=== PATIENT | male | born 1985 | race Caucasian/White ===

== ENCOUNTER 2018-07-20 11:24 | Observation (INO) | payer OTHER ==
--- NOTE | 2018-07-20 12:46 | PDOC ---
History of Present Illness - General Chief Complaint: Chest Pain Stated Complaint: LT SIDE LUNG PAIN Time Seen by Provider: 07/20/18 11:56 History Source: Patient Exam Limitations: No Limitations Past History - Past Medical History Allergies/Adverse Reactions: Allergies Allergy/AdvReac Type Severity Reaction Status Date / Time No Known Allergies Allergy Verified 07/20/18 13:28 COPD: No - Immunization History Immunization Up to Date: Yes - Suicide/Smoking/Psychosocial Hx Smoking History: Never smoked Hx Alcohol Use: No Drug/Substance Use Hx: No *Physical Exam - Vital Signs Last Vital Signs Temp Pulse Resp BP Pulse Ox 99.0 F 119 H 16 141/85 97 07/20/18 11:40 07/20/18 11:40 07/20/18 11:40 07/20/18 11:40 07/20/18 11:40 - Physical Exam General Appearance: No: Apparent Distress Respiratory/Chest: positive: Decreased Breath Sounds (along R lower lung base). negative: Respiratory Distress, Accessory Muscle Use, Paradoxal Breathing, Crackles, Rales, Rhonchi, Wheezing Cardiovascular: positive: Regular Rhythm, Regular Rate, S1, S2. negative: Murmur Gastrointestinal/Abdominal: positive: Normal Bowel Sounds, Soft. negative: Tender, Distended, Guarding, Rebound Extremity: positive: Normal Inspection. negative: Pedal Edema, Calf Tenderness Integumentary: positive: Normal Color Neurologic: positive: Fully Oriented, Alert, Normal Mood/Affect Moderate Sedation - Procedure Monitoring Vital Signs: Procedure Monitoring Vital Signs Temperature 99.0 F 07/20/18 11:40 Pulse Rate 119 H 07/20/18 11:40 Respiratory Rate 16 07/20/18 11:40 Blood Pressure 141/85 07/20/18 11:40 O2 Sat by Pulse Oximetry (%) 97 07/20/18 11:40 ED Treatment Course - LABORATORY CBC & Chemistry Diagram: 07/20/18 13:34 07/20/18 13:34 - RADIOLOGY Radiology Studies Ordered: Category Date Time Status CHEST PA & LAT [RAD] Stat Radiology 07/20/18 12:27 Taken Medical Decision Making - Medical Decision Making 33 y/o M former smoker (quit 8 years ago, smoked 3-4 years, 0.5 ppd) with no other significant PMH presents with R lateral chest wall pain from last night along with SOB. Saw his PCP who referred to ED to r/o PTX for decreased breath sounds on R side of lung. Patient also mentions having productive cough the past 5 days and fever of 100.4 yesterday. Denies rhinorrhea, congestion, throat pain, abd pain, n/v, dizziness, palpitations. CP is not pleurtic and nonexertional. Denies drug or alcohol use. Last travel was to [facility] which was 6 weeks ago. Denies FH of CAD or PA EKG: Sinus tachycardia at 105 bpm Consider PTX, PNA, PE; less suspicious for ACS (only risk factor is former smoking history) Plan: CXR 07/20/18 12:42 Laboratory Tests 07/20/18 13:34 WBC 27.6 H CXR with possible concern for PNA, though somewhat equivocal Marked leukocytosis of 27.6 noted D dimer negative D/W Dr. Salmeron - recommends getting CTA chest despite neg D-dimer; will also evaluate for PNA For now, will start on Ceftriaxone and Azithromycin 07/20/18 15:35 CTA shows no PE but shows bi-lobar PNA Given results of CTA and marked leukocytosis, will admit patient for further management 07/20/18 17:14 *DC/Admit/Observation/Transfer Diagnosis at time of Disposition: Pneumonia Qualifiers: Pneumonia type: due to unspecified organism Laterality: bilateral Lung location : lower lobe of lung Qualified Code(s): J18.1 - Lobar pneumonia, unspecified organism - Discharge Dispostion Condition at time of disposition: Stable Decision to Admit order: Yes - Referrals Referrals: Varsha Worthy [Primary Care Provider] - - Patient Instructions - Post Discharge Activity
--- NOTE | 2018-07-20 12:52 | PDOC ---
*Physical Exam - Vital Signs Last Vital Signs Temp Pulse Resp BP Pulse Ox 99.0 F 119 H 16 141/85 97 07/20/18 11:40 07/20/18 11:40 07/20/18 11:40 07/20/18 11:40 07/20/18 11:40 ED Treatment Course - LABORATORY CBC & Chemistry Diagram: 07/21/18 07:00 07/21/18 07:00 Medical Decision Making - Medical Decision Making 07/20/18 12:51 Pt seen by the Advanced Practice Provider under my direct supervision Ancillary studies reviewed I agree with plan as outlined by the Advanced Practice Provider NERI Carrillo 33 year old male, former smoker, presents with 5 day of productive cough and decreased breath sounds on the right. Pt's PMD concerned for pneumothorax. ECG here demonstrates NSR with ?[id number]. Chest xray reviewed by me, pending official radiology read. No obvious pneumothorax. Questionable Right sided pneumonia. I suspect we should treat as pneumonia with oral antibiotics i.e. levaquin. However, should consider PE. Send d-dimer and if positive, CTA chest. *DC/Admit/Observation/Transfer Diagnosis at time of Disposition: Pneumonia - Discharge Dispostion Disposition: HOME Condition at time of disposition: Good - Referrals - Patient Instructions - Post Discharge Activity
[2018-07-20 13:57] LABS: BASO % 0.1 % (0-2.0); HEMOGLOBIN 16.2 GM/dL (11.7-16.9); LYMPH % 3.8 % (8-40); MCH 30.5 pg (25.7-33.7); MCHC 34.5 g/dl (32.0-35.9); MEAN CELL VOLUME 88.4 fl (80-96); MEAN PLT VOLUME 7.7 fl (7.5-11.1); MONO % 5.7 % (3.8-10.2); NEUT % 90.4 % (42.8-82.8); PLATELET COUNT 248 K/MM3 (134-434); RBC 5.32 M/mm3 (4.00-5.60); WHITE BLOOD COUNT 27.6 K/mm3 (4.0-10.0)
[2018-07-20 14:12] LABS: ANION GAP 6 MMOL/L (8-16); BLOOD UREA NITROGEN 13 mg/dL (7-18); CHLORIDE 101 mmol/L (98-107); CO2 27 mmol/L (21-32); CREATININE 1.1 mg/dL (0.55-1.3); GLUCOSE,RANDOM 114 mg/dL (74-106); POTASSIUM 3.9 mmol/L (3.5-5.1); SODIUM 135 mmol/L (136-145)
[2018-07-20] MEDS ORDERED: AZITHROMYCIN 250 MG TABLET PO ONE (14:51)
[2018-07-20] MEDS ORDERED: CEFTRIAXONE 1,000 MG in DEXTROSE 5%-WATER - 50 ML IVPB ONE (14:51)
[2018-07-20 15:27] LABS: PLATELET ESTIMATE ADEQUATE
[2018-07-20] MEDS ORDERED: CEFTRIAXONE 1 GM/50 ML BAG ONE (15:55)
[2018-07-20] MEDS ORDERED: AZITHROMYCIN 500 MG TABLET ONE (15:55)
[2018-07-20 16:32] LABS: ACTIVATED PTT 28.8 SECONDS (25.2-36.5)
[2018-07-20 16:37] LABS: INR 1.42 (0.82-1.09); PROTHROMBIN TIME (PATIENT) 15.8 SEC (10.2-13.0)
[2018-07-20] MEDS ORDERED: ACETAMINOPHEN 325 MG TABLET (FP) PO PRN (17:28)
[2018-07-20] MEDS ORDERED: SODIUM CHLORIDE 1,000 ML IV SCH (17:30)
--- NOTE | 2018-07-20 17:36 | HP ---
Admitting History and Physical - Primary Care Physician PCP: Varsha Worthy - Admission Chief Complaint: I have pneumonia History of Present Illness: Mr Bonilla is a pleasant 33 year old male who comes in with productive cough and right sided chest pain. He states that he started coughing 5 days ago and produced green sputum. He began to have right sided chest pain, mainly felt when coughing, that began yesterday. He saw his PCP and she sent him in for evaluation of the chest pain. Aside from these two symptoms he is without complaint. He denies fevers, chills, lightheadedness, dizziness, passing out, chest pressure, shortness of breath, nausea, vomiting, diarrhea, constipation, difficulty or pain on urination, or swelling. He says he is feeling better now. History Source: Patient Limitations to Obtaining History: No Limitations - Past Medical History Additional Past Medical History: No PMHx - Past Surgical History Past Surgical History: Yes: None - Smoking History Smoking history: Never smoked - Alcohol/Substance Use Hx Alcohol Use: No History of Substance Use: reports: None - Social History Usual Living Arrangement: Yes: With Spouse ADL: Independent History of Recent Travel: Yes (6 weeks to [facility]) Home Medications - Allergies Allergies/Adverse Reactions: Allergies Allergy/AdvReac Type Severity Reaction Status Date / Time No Known Allergies Allergy Verified 07/20/18 13:28 Family Disease History - Family Disease History Family History: Denies Review of Systems Findings/Remarks: Full review of systems obtained, as per HPI and otherwise negative Physical Examination Vital Signs: Vital Signs Temperature 37.2 C 07/20/18 11:40 Pulse Rate 119 H 07/20/18 11:40 Respiratory Rate 16 07/20/18 11:40 Blood Pressure 141/85 07/20/18 11:40 O2 Sat by Pulse Oximetry (%) 97 07/20/18 11:40 Constitutional: Yes: Well Nourished, No Distress, Calm Eyes: Yes: Conjunctiva Clear, EOM Intact, PERRL HENT: Yes: Atraumatic, Normocephalic Cardiovascular: Yes: Regular Rate and Rhythm. No: Gallop, Murmur, Rub Respiratory: Yes: Regular, CTA Bilaterally. No: Rales, Rhonchi, Wheezes Gastrointestinal: Yes: Normal Bowel Sounds, Soft. No: Distention, Tenderness Extremities: Yes: WNL Edema: No Labs: CBC, BMP 07/20/18 13:34 07/20/18 13:34 Imaging - Results Chest X-ray: Report Reviewed, Image Reviewed Cat Scan: Report Reviewed Problem List - Problems (1) Pneumonia Assessment/Plan: -patient found to have bilateral pneumonia -also with significant leukocytosis -otherwise stable and not requiring oxygen -will admit under observation, expect to be able to discharge in 24 hours -given rocephin and zithromax in the ED, will continue -check urine for pneumonia antigens -sputum culture -if leukocytosis improves, plan to change to oral antibiotics -evaluate in am Code(s): J18.9 - PNEUMONIA, UNSPECIFIED ORGANISM Qualifiers: Pneumonia type: due to unspecified organism Laterality: bilateral Lung location: lower lobe of lung Qualified Code(s): J18.1 - Lobar pneumonia, unspecified organism
[2018-07-20] MEDS: LACTOBACILLUS ACIDOPHILUS 1 TABLET PO SCH (19:43)
[2018-07-20 23:19] VITALS: BMI 33.3
[2018-07-21 08:32] LABS: BASO % 0.1 % (0-2.0); HEMATOCRIT 40.2 % (35.4-49); MCH 30.4 pg (25.7-33.7); MCHC 34.8 g/dl (32.0-35.9); MEAN CELL VOLUME 87.4 fl (80-96); MEAN PLT VOLUME 7.8 fl (7.5-11.1); MONO % 5.9 % (3.8-10.2); PLATELET COUNT 224 K/MM3 (134-434); RDW 12.8 % (11.9-15.9)
[2018-07-21 08:41] LABS: ALBUMIN 3.2 g/dl (3.4-5.0); ALK PHOS 77 U/L (45-117); ANION GAP 6 MMOL/L (8-16); BILIRUBIN,TOTAL 1.2 mg/dL (0.2-1); BLOOD UREA NITROGEN 12 mg/dL (7-18); CALCIUM 8.3 mg/dL (8.5-10.1); CHLORIDE 103 mmol/L (98-107); CO2 27 mmol/L (21-32); CREATININE 0.8 mg/dL (0.55-1.3); GLUCOSE,RANDOM 108 mg/dL (74-106); MAGNESIUM 2.6 mg/dL (1.8-2.4); POTASSIUM 3.6 mmol/L (3.5-5.1); SGOT/AST 21 U/L (15-37); SGPT/ALT 37 U/L (13-61); SODIUM 136 mmol/L (136-145); TOT PROT 6.8 g/dl (6.4-8.2)
[2018-07-21 08:43] LABS: INR 1.45 (0.83-1.09); PROTHROMBIN TIME (PATIENT) 17.2 SEC (9.7-13.0)
[2018-07-21] MEDS ORDERED: DEXTROSE 5%-WATER - 50 ML IVPB ONE (09:28)
[2018-07-21] MEDS ORDERED: cefTRIAXone SODIUM 1 GM VIAL ONE (09:28)
[2018-07-21] MEDS: LACTOBACILLUS ACIDOPHILUS 1 TABLET PO SCH (09:31)
[2018-07-21] MEDS ORDERED: CEFTRIAXONE 1 GM in DEXTROSE 5%-WATER - 50 ML IVPB SCH (10:00)
[2018-07-21] MEDS ORDERED: AZITHROMYCIN IVPB 500 MG/250 ML BAG IVPB SCH (10:00)
[2018-07-21 11:10] VITALS: TEMP 98.4
--- NOTE | 2018-07-21 13:34 | DS ---
Physical Examination Vital Signs: Vital Signs Temperature 36.9 C 07/21/18 10:00 Pulse Rate 92 H 07/21/18 10:00 Respiratory Rate 20 07/21/18 10:00 Blood Pressure 130/68 07/21/18 10:00 O2 Sat by Pulse Oximetry (%) 98 07/21/18 09:00 Constitutional: Yes: Well Nourished, No Distress, Calm Cardiovascular: Yes: Regular Rate and Rhythm. No: Gallop, Murmur, Rub Respiratory: Yes: Regular, CTA Bilaterally. No: Rales, Rhonchi, Wheezes Gastrointestinal: Yes: Normal Bowel Sounds, Soft. No: Distention, Tenderness Extremities: Yes: WNL Edema: No Labs: CBC, BMP 07/21/18 07:00 07/21/18 07:00 Discharge Summary Reason For Visit: PNEUMONIA Current Active Problems Pneumonia (Acute) Hospital Course: Mr Bonlila is a very pleasant 33 year old male who came in with pneumonia and leukocytosis. He was admitted to the hospital and started on rocephin and zithromax. He received 2 days of this. He improved significantly. He was afebril and not hypoxic. He can be changed to oral antibiotics with close follow up with his PCP. He is stable for discharge today. Condition: Good - Instructions Diet, Activity, Other Instructions: resume previous diet and activity Referrals: Varsha Worthy [Primary Care Provider] - 1 Week Disposition: HOME - Home Medications Comprehensive Discharge Medication List: Ambulatory Orders Amox-Tr/K Cl [Augmentin - 875Mg Tablet] 1 tab PO BID #20 tablet 07/21/18
[2018-07-21 14:43] VITALS: BP 123/70; PULSE 86
--- NOTE | 2018-07-21 23:52 | EKG ---
Test Reason : Blood Pressure : / mmHG Vent. Rate : 105 BPM Atrial Rate : 105 BPM P-R Int : 128 ms QRS Dur : 090 ms QT Int : 320 ms P-R-T Axes : 052 027 020 degrees QTc Int : 422 ms SINUS TACHYCARDIA NONSPECIFIC T WAVE ABNORMALITY ABNORMAL ECG NO PREVIOUS ECGS AVAILABLE Confirmed by MAKAYLA CASTAÑEDA MD ([id number]) on 07/21/2018 11:51:54 PM Referred By: Confirmed By:MAKAYLA CASTAÑEDA MD
== END 2018-07-21 15:30 | disposition home or self-care (01) ==
LOC: JER 11:24 → JERBED 17:15 → J5S 20:46
PROVIDERS: ADMIT Internal Medicine; ATTEND Internal Medicine
PROC: 3E03329 Introduction of Other Anti-infective into Peripheral Vein, Percutaneous Approach (ICD-10-PCS; principal; 2018-07-20)
PROC: 3E0337Z Introduction of Electrolytic and Water Balance Substance into Peripheral Vein, Percutaneous Approach (ICD-10-PCS; 2018-07-20)
DX: J18.1 Lobar pneumonia, unspecified organism (principal); Z87.891 Personal history of nicotine dependence
CPT/HCPCS: 36415; 71046-TC-FY; 71275-TC; 80048; 80053; 83735; 84100; 84484; 85025; 85379; 85610; 85730; 87040; 87070; 87205; 87899; 93005; 93010; 96365; 96375; 99285-25; G0378; J7030